=== PATIENT | female | born 1975 | race Caucasian/White ===

== ENCOUNTER 2023-02-08 16:35 | Emergency (ER) | payer OTHER ==
[2023-02-08 16:53] VITALS: BP 123/73; PULSE 72; RESP 16; TEMP 98.4; BMI 23.0
== END 2023-02-08 19:14 | disposition home or self-care (01) ==
LOC: JERFT 16:35
DX: M79.644 Pain in right finger(s) (principal); R22.31 Localized swelling, mass and lump, right upper limb; S63.614A Unspecified sprain of right ring finger, initial encounter; X58.XXXA Exposure to other specified factors, initial encounter
CPT/HCPCS: 73140-TC-RT-FY; 99283-25